=== PATIENT | male | born 2000 | race Caucasian/White ===

== ENCOUNTER 2019-02-13 17:17 | Outpatient (CLI) | payer OTHER ==
--- NOTE | 2019-02-13 18:05 | RAD ---
EXAM: Chest PA and lateral: HISTORY: Cough rib pain and chest pain COMPARISON: None FINDINGS: Heart size:Within normal limits. Lungs:Clear of acute process. No confluent pneumonia, overt edema, pleural effusion, or other acute process. IMPRESSION: No significant acute intrathoracic disease.
== END 2019-02-13 17:18 | disposition home or self-care (01) ==
LOC: SCSRAD 17:17
PROVIDERS: ATTEND Family Medicine
DX: R07.9 Chest pain, unspecified (principal)
CPT/HCPCS: 71046